=== PATIENT | female | born 1935 | race Caucasian/White ===

== ENCOUNTER 2016-12-21 10:10 | Observation (INO) | payer MEDICARE ==
[2016-12-21 11:42] LABS: URINE BILIRUBIN NEGATIVE (NEGATIVE); URINE BLOOD 3+ (NEGATIVE); URINE GLUCOSE (UA) NEGATIVE (NEGATIVE); URINE LEUKOCYTE ESTERASE TRACE (NEGATIVE); URINE NITRITE NEGATIVE (NEGATIVE); URINE PROTEIN 2+ (NEGATIVE)
[2016-12-21 11:45] LABS: ABSOLUTE NEUTROPHIL COUNT 10.9 K/mm3 (1.8-7.7); BASO % 0.2 % (0.2-1.0); HEMATOCRIT 41.8 % (37.0-47.0); HEMOGLOBIN 13.6 gm/l (12.0-16.0); IMM NEUT # 0.1 K/mm3 (0-0.2); IMM NEUT% 0.4 % (0-1); LYMPH # 0.9 (1.0-4.8); LYMPH % 6.7 % (15-45); MEAN CORPUSCULAR HEMOGLOBIN 27.6 pg (27.0-31.0); MEAN CORPUSCULAR HGB CONC 32.5 g/dl (33.0-37.0); MEAN PLATELET VOLUME 9.5 fl (7.4-10.4); MONO # 0.8 (0.0-0.8); NEUT % 86.7 % (43-75); PLATELET COUNT 182 K/mm3 (130-400); RED CELL DISTRIBUTION WIDTH 13.7 % (11.5-14.5)
[2016-12-21 11:51] LABS: URINE APPEARANCE CLOUDY; URINE COLOR YELLOW; URINE UROBILINOGEN 4 mg/dL (0-1 mg/dl)
[2016-12-21 11:52] LABS: URINE BACTERIA MANY
[2016-12-21 12:00] LABS: ALB/GLOB RATIO 1.6 (>1.0); ALBUMIN 4.5 gm/dL (3.5-5.7); CALCIUM 9.5 mg/dL (8.6-10.3)
[2016-12-21 12:15] LABS: TROPONIN I 0.01 ng/ml (0.0-0.06)
[2016-12-21 12:19] LABS: CKMB ISOENZYME 15.4 ng/ml (0.6-6.3)
[2016-12-21] MEDS ORDERED: METOPROLOL TARTRATE 50 MG TABLET ONE (12:19)
[2016-12-21] MEDS ORDERED: ACETAMINOPHEN 500 MG TABLET ONE (12:27)
--- NOTE | 2016-12-21 13:00 | RAD ---
HISTORY: Right hip pain status post fall. Initial encounter. COMPARISONS: None FINDINGS: AP pelvis with AP and frog-leg lateral views of the right hip are obtained. Bones:No fracture or dislocation. Rim osteophytes are present on the right. Mild spurring of the lateral acetabular roof is present bilaterally. Joints: Moderate superior joint space loss is present bilaterally. Soft tissue: Surgical clips are noted within the pelvis. Other: Nonspecific bowel gas pattern overlays the osseous structures.. IMPRESSION: No fracture or dislocation. Degenerative changes as above.
[2016-12-21] MEDS ORDERED: CEFTRIAXONE 1 GRAM DUPLEX 50 ML IV ONE (13:44)
[2016-12-21 14:30] VITALS: BMI 26.7
[2016-12-21] MEDS ORDERED: PUMP TUBING ONE (14:32)
[2016-12-21] MEDS ORDERED: SODIUM CHLORIDE 0.9% FLUSH 10 ML ONE (14:32)
[2016-12-21] MEDS ORDERED: SODIUM CHLORIDE 0.9% 1,000 ML ONE (14:32)
[2016-12-21] MEDS ORDERED: BLISTEX LIPSTICK 1 EACH TP PRN (14:43)
[2016-12-21] MEDS ORDERED: BISACODYL 10 MG SUP PR PRN (14:43)
[2016-12-21] MEDS ORDERED: MAGNESIUM HYDROXIDE 30 ML UDCUP PO PRN (14:43)
[2016-12-21] MEDS ORDERED: BISACODYL 5 MG TABLET.EC PO PRN (14:43)
[2016-12-21] MEDS ORDERED: MENTHOL/CETYLPYRD 1 EACH LOZENGE PO PRN (14:43)
[2016-12-21] MEDS ORDERED: SODIUM CHLORIDE 0.9% 100 ML IV PRN (14:43)
[2016-12-21] MEDS ORDERED: SODIUM CHLORIDE 0.9% 1,000 ML IV SCH (14:45)
[2016-12-21] MEDS ORDERED: KETOROLAC TROMETHAMINE 15 MG/ML VIAL IV ONE (14:54)
[2016-12-21] MEDS: CALCIUM CARBONATE 500 MG TAB.CHEW PO SCH ×2 (16:30→22:00)
[2016-12-21] MEDS: ASPIRIN (ENTERIC COATED) 81 MG TABLET.EC PO SCH (16:30)
[2016-12-21] MEDS: HYDROCHLOROTHIAZIDE 25 MG TABLET PO SCH (16:30)
[2016-12-21] MEDS: PAROXETINE 20 MG TABLET PO SCH (16:30)
[2016-12-21] MEDS: LISINOPRIL 10 MG TABLET PO SCH (16:31)
--- NOTE | 2016-12-21 16:31 | HP ---
LUIS MIGUEL AMBROCIO [id number] DATE OF : 1935 IDENTIFICATION: This is a 80-year-old female. CHIEF COMPLAINT: Hip pain. HISTORY OF PRESENT ILLNESS: The patient is currently homeless. She was in the post office in [place] last evening to try to stay out of the rain and to maintain some warmth. She was walking, and she turned around to fast, became dizzy and fell. She landed on her buttocks, but she had resultant hip pain. The patient denies hitting her head, or losing consciousness with the fall. She says this happens if she turns to fast due to her macular degeneration. She presumably spent the night there, and then somehow made her way to the emergency department today. Details are lacking from her. In the emergency department, she complained of hip pain. X-ray was negative for any acute hip fracture, but she was found to have pyuria and a slightly elevated white blood count. She is being admitted for observation overnight for assistance with child welfare social worker and treatment of the urinary tract infection. The patient is homeless. It seems to have been for at least the past 6 months. Unknown how this was initiated. She has been staying with friends, and shelters, but has been asked to leave from various locations. Due to her situation, she denies suicidality, but she took a handful of her paroxetine in an attempt to receive assistance for her social situation. She was monitored in the [facility], provided with resources upon her discharge to help with housing and she was discharged on her own recognizance. In discussing the patient's suicide attempt, I asked if she was having any auditory, or visual hallucinations and she did say that she has been seeing people. The hallucinations started with people that she knew that were . One was with a cat on her bed. Others were faces on the ceiling. Then over the progression of the last month or two, she had stayed at [facility] for a few days and while she was at [facility] various individuals were looking in the windows at her. She did not recognize these people, and a couple of them were children. PAST MEDICAL HISTORY: Includes: 1. Hypertension. 2. Macular degeneration. 3. Depression PAST SURGICAL HISTORY: Appendectomy. MEDICATIONS: 1. Aspirin. 2. Calcium. 3. Lisinopril. 4. Multivitamin. 5. Travatan ophthalmic solution. 6. Paroxetine. 7. Hydrochlorothiazide. ALLERGIES: NONE. SOCIAL HISTORY: She is homeless. FAMILY HISTORY: Both parents with myocardial infarction. She had a son who at 54 from myocardial infarction. REVIEW OF SYSTEMS: General: No fevers, or chills. HEENT: No throat pain, or congestion. Eyes: Blindness, macular degeneration. Cardiovascular: No chest pain, or pressure. Respiratory: No difficulty in breathing, shortness of breath, or cough. Abdomen: No nausea, vomiting, or abdominal pain. Genitourinary: No burning with urination, no urgency, no blood. Musculoskeletal: She has bilateral hip pain. Neurologic: She does get headaches, no numbness, or tingling. Psychiatric: Hallucinations. PHYSICAL EXAMINATION: VITAL SIGNS: Temperature is 97.7. Heart rate is 78. Blood pressure is 182/102. Respiratory rate is 18. She is saturating 96% on room air. GENERAL: Well kept, not in acute distress, age appearing, cooperative. HEENT: Normocephalic, atraumatic. No tenderness to palpation. Mucous membranes are moist. Her pupils are equal, round and reactive. Her extraocular muscles are intact. There is no scleral icterus, or conjunctival injection. NECK: Supple, trachea is midline. No appreciable cervical, or submandibular lymphadenopathy. CARDIOVASCULAR: Positive S1, S2. It is regular. She has palpable pulses bilaterally radially and DP. RESPIRATORY: Respiratory is clear to auscultation bilaterally, no rhonchi or wheezing. ABDOMEN: Soft, nontender. No distention or rebound. No guarding. MUSCULOSKELETAL: She is moving extremities without difficulty. She has 5/5 upper and lower extremity strength bilaterally. Bilateral hips are tender to palpation. Her lower extremities from the knee down bilaterally are tender to palpation. She has no costovertebral angle tenderness. NEUROLOGIC: She is alert and oriented. PSYCHIATRIC: Denies suicidal, or homicidal ideations. No auditory hallucinations. She promotes visual hallucinations, but is not in distress over these. LABORATORY DATA: She has a sodium of 140, potassium 3.7, chloride 102, carbon dioxide of 27, BUN 14, creatinine 0.8, glucose 141, and calcium 9.5. CK of 374. CK-MB of 15.4. Troponin of 0.01. White blood count is 12.6, hemoglobin 13.6, hematocrit 41.8, and a platelet count of 182. VBG lactate at 1.1. Urinalysis was obtained. Urine was yellow and cloudy. There is 2+ protein, negative glucose, trace ketones, 3+ blood, negative nitrate, trace leukocyte esterase with 1 to 4 urine red blood cells, 5 to 7 urine white blood cells, 1 to 4 epithelial cells, and many bacteria. DIAGNOSTIC IMAGING: Hip and pelvis x-ray was obtained and interpreted with no fracture, dislocation, degenerative changes, moderate superior joint space loss is present bilaterally. Rim osteophytes are present on the right. Mild spurring of the lateral acetabular roof bilaterally. Electrocardiogram was obtained and it shows atrial fibrillation with a rate of 98 beats per minute. No axis deviation, no acute ST segment elevations or depressions. She has a QRS duration of 86 milliseconds, and a QTC of 418 milliseconds. ASSESSMENT AND PLAN: This is a 80-year-old homeless female with pyuria and bilateral hip pain following a fall. 1. Pyuria. She received a dose of Rocephin in the emergency department. We will wait for culture to continue treatment. 2. Fall. We will have her work with therapy to help her with strategies due to her decreased vision, and macular degeneration. We will continue her ophthalmic solution. 3. Leukocytosis secondary to fall, and possible pyuria versus urinary tract infection. 4. Atrial fibrillation. Unknown if new, or chronic. She is on a baby aspirin. We will monitor for symptoms and keep her weight controlled if needed. 5. Hallucinations. These are apparently new for the patient in the last several months. Social workers are working with her closely. We will obtain a head CT as her infection is not on the level where you would think she had metabolic encephalopathy. We will provide antipsychotic medications if needed. Head CT with evidence of normal pressure hydrocephalus. 6. Elevated CK. 2nd to fall. IV fluids. GENI/corey Cc: Katia Fierro MD
--- NOTE | 2016-12-21 17:02 | CT ---
HEAD W/O CON: 12/21/2016 4:24 PM CLINICAL HISTORY: Hallucinations. COMPARISON: 10/15/2009 TECHNIQUE: Contiguous axial 5 mm images from skull base to the vertex were obtained without IV contrast. Sagittal and coronal reformations with bone algorithm images were also obtained at this time. CT DI:: 51.7 DLP: 938.9 FINDINGS: Infarct: None Extra axial spaces: Normal in size and morphology for the patient's age. Hemorrhage: None. Ventricular system: Increased prominence to the cerebral ventricles is identified. Findings are worrisome for underlying normal pressure hydrocephalus.. Basal cisterns: Normal. Cerebral parenchyma: Atrophy and small vessel occlusive change are again noted.. Midline shift: None. Cerebellum: Normal. Brainstem: Normal. OTHER: Calvarium: Dural based calcification is present along the right temporal region on image 17. Findings could relate to a small meningioma or other calcification. This is stable from prior study. Vascular system: Normal. Visualized Paranasal sinuses and Mastoid air cells: Clear. Visualized Orbits and regional soft tissues: Normal. IMPRESSION: Increased prominence to the ventricular system worrisome for normal pressure hydrocephalus. Correlation with exam and history is recommended. Otherwise small vessel occlusive change and atrophy are again identified without acute intracranial process. Findings were called to Dr. Bell at approximately 1658 hours on 12/21/2016.
[2016-12-21] MEDS: TRAVOPROST 0.004% OU SCH (19:18)
[2016-12-21] MEDS: [UNRECOGNIZED DRUG - OTHER] OU SCH (19:18)
[2016-12-21] MEDS: OLANZAPINE 5 MG TABLET PO SCH ×2 (19:37→20:06)
[2016-12-21] MEDS: DOCUSATE SODIUM 100 MG CAPSULE PO SCH (20:05)
[2016-12-22 06:04] LABS: ABSOLUTE NEUTROPHIL COUNT 6.1 K/mm3 (1.8-7.7); BASO # 0.1 K/mm3 (0.0-0.2); BASO % 0.5 % (0.2-1.0); EOS # 0.1 (0.0-0.5); EOS % 1.2 % (0.9-2.9); HEMATOCRIT 39.7 % (37.0-47.0); HEMOGLOBIN 12.6 gm/l (12.0-16.0); IMM NEUT% 0.3 % (0-1); LYMPH % 22.2 % (15-45); MEAN CELL VOLUME 88.8 fl (81.0-99.0); MEAN CORPUSCULAR HEMOGLOBIN 28.2 pg (27.0-31.0); MEAN CORPUSCULAR HGB CONC 31.7 g/dl (33.0-37.0); MEAN PLATELET VOLUME 9.9 fl (7.4-10.4); MONO # 0.8 (0.0-0.8); NEUT % 66.8 % (43-75); PLATELET COUNT 190 K/mm3 (130-400)
[2016-12-22] MEDS ORDERED: SODIUM CHLORIDE 0.9% 1,000 ML IV SCH ×2 (08:15→09:00)
[2016-12-22] MEDS: POTASSIUM CHLORIDE 20 MEQ TAB.PRT.SR PO SCH ×2 (08:46→21:36)
[2016-12-22] MEDS: CALCIUM CARBONATE 500 MG TAB.CHEW PO SCH ×2 (08:51→21:36)
[2016-12-22] MEDS: PAROXETINE 20 MG TABLET PO SCH (08:51)
[2016-12-22] MEDS: HYDROCHLOROTHIAZIDE 25 MG TABLET PO SCH (08:51)
[2016-12-22] MEDS: LISINOPRIL 10 MG TABLET PO SCH (08:51)
[2016-12-22] MEDS: DOCUSATE SODIUM 100 MG CAPSULE PO SCH ×2 (08:52→22:48)
[2016-12-22] MEDS: ASPIRIN (ENTERIC COATED) 81 MG TABLET.EC PO SCH (08:53)
--- NOTE | 2016-12-22 09:44 | PDOC43 ---
- Subjective Chief Complaint: fall, hip pain Patient awake and alert, eating breakfast. She slept well with the medication overnight. Had hallucination of an elderly lady with crocker hair at the foot of bed or looking in her room last night. Hip pain present with transferring. Ambulating without difficulty and tolerating general diet. Subjective: Reports Pain Tolerable, Reports Tolerating Diet Well, Reports Adequate Oral Intake, Reports Urinating Without Difficulty, Denies Shortness of Breath, Denies Cough, Denies Chest Pain, Denies Abdominal Pain, Denies Nausea ( halluncinations), Denies Vomiting - Objective Vital Signs Temperature 98.0 F 12/22/16 08:37 Pulse Rate 80 12/22/16 08:37 Respiratory Rate 18 12/22/16 08:37 Blood Pressure 132/82 12/22/16 08:37 O2 Saturation by Pulse Oximetry 96 12/21/16 20:12 Oxygen Delivery Method Nasal Cannula Oxygen Flow Rate 3 Intake and Output 12/20/16 12/21/16 12/22/16 23:59 23:59 23:59 Intake Total 449 1000 Output Total 250 Balance 449 750 General: Alert, Oriented x3, Cooperative, No Acute Distress HEENT: Atraumatic, PERRLA, EOMI, Mucous membr. moist/pink Lungs: Clear to Auscultation Bilaterally, Normal Air Movement Cardiovascular: Regular Rate and Rhythm, Normal S1, Normal S2 Abdomen: Soft, Non-Distended, No Rigid, No Tenderness, No Rebounding Extremities: No Cyanosis, No Edema, No Tenderness Neurological: Normal Speech Psych/Mental Status: Normal Mood Laboratory 12/22/16 05:30 12/22/16 05:30 12/22/16 05:30 MCHC 31.7 L Estimated GFR 53 L Creatine Kinase 492 H Current Medications: Current meds reviewed in EMR. - Problems: Assessment/Plan (1) NPH (normal pressure hydrocephalus) Status: Acute Assessment/Plan: New diagnosis, contributing to hallucinations. Walked with therapy and gait instability not unexpected with her macular degeneration. Will need OP F/U CT with prominence of ventricles (2) Bacteriuria with pyuria Status: Acute Assessment/Plan: Pyuria on urinalysis but patient asymptomatic for symptoms. Received dose of rocephin in ED. 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 Continue with drops (4) Hip pain, chronic Qualifiers: Laterality: unspecified laterality Qualifier Code: (M25.559) Pain in unspecified hip Status: Chronic Assessment/Plan: exacerbated by fall. X-ray with B/L degenerative changes. Patient ambulatory without difficulties. Toradol relieved pain. No acute fracture on imaging (5) Hypertension Qualifiers: Hypertension type: essential hypertension Qualifier Code: (I10) Essential (primary) hypertension Status: Chronic Assessment/Plan: stable (6) Depression Qualifiers: Depression Type: major depressive disorder Major depression recurrence : recurrent Active/Remission status: currently active Major depression episode severity: moderate Qualifier Code: (F33.1) Major depressive disorder , recurrent, moderate Status: Chronic Assessment/Plan: on medications (7) Homeless Status: Chronic Assessment/Plan: Complicates discharge planning. She has lost housing opportunities with friends and a fci due to behavioral disturbances and aggressiveness. 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 Care management and social work involved. She does have a services psychosocial rehabilitation counselor as well. Behavior improved last night with zyprexa. VTE Prophylaxis: SCD and ambulatory
[2016-12-22] MEDS ORDERED: IV START KIT ONE (09:47)
[2016-12-22] MEDS: PNEUMOCOCCAL 23-VAL P-SAC VAC 0.5 ML VIAL IM V ONE (10:49)
[2016-12-22] MEDS ORDERED: LORAZEPAM 2 MG/ML 1ML SDV IV PRN (13:46)
[2016-12-22] MEDS ORDERED: LORAZEPAM 2 MG/ML 1ML SDV ONE (13:51)
[2016-12-22] MEDS: ACETAMINOPHEN 325 MG TABLET PO PRN (19:22)
[2016-12-22] MEDS: OLANZAPINE 5 MG TABLET PO SCH (21:36)
[2016-12-22] MEDS: [UNRECOGNIZED DRUG - OTHER] OU SCH (21:38)
[2016-12-22] MEDS: TRAVOPROST 0.004% OU SCH (21:38)
[2016-12-23 06:19] LABS: CALCIUM 8.1 mg/dL (8.6-10.3)
[2016-12-23] MEDS: DOCUSATE SODIUM 100 MG CAPSULE PO SCH ×2 (09:03→20:58)
[2016-12-23] MEDS: LISINOPRIL 10 MG TABLET PO SCH (09:03)
[2016-12-23] MEDS: POTASSIUM CHLORIDE 20 MEQ TAB.PRT.SR PO SCH ×2 (09:03→20:58)
[2016-12-23] MEDS: HYDROCHLOROTHIAZIDE 25 MG TABLET PO SCH (09:03)
[2016-12-23] MEDS: PAROXETINE 20 MG TABLET PO SCH (09:03)
[2016-12-23] MEDS: ASPIRIN (ENTERIC COATED) 81 MG TABLET.EC PO SCH (09:03)
[2016-12-23] MEDS: CALCIUM CARBONATE 500 MG TAB.CHEW PO SCH ×2 (09:03→20:58)
[2016-12-23] MEDS: PNEUMOCOCCAL 23-VAL P-SAC VAC 0.5 ML VIAL IM V ONE (09:04)
[2016-12-23] MEDS: ACETAMINOPHEN 325 MG TABLET PO PRN ×2 (15:52→20:59)
--- NOTE | 2016-12-23 16:20 | PDOC43 ---
- Subjective Chief Complaint: fall, hip pain Patient doing well. No complaints. Subjective: Reports Pain Tolerable, Reports Tolerating Diet Well, Reports Adequate Oral Intake, Reports Urinating Without Difficulty, Denies Shortness of Breath, Denies Cough, Denies Chest Pain, Denies Abdominal Pain, Denies Nausea, Denies Vomiting - Objective Vital Signs Temperature 97.4 F 12/23/16 15:15 Pulse Rate 112 12/23/16 15:15 Respiratory Rate 17 12/23/16 15:15 Blood Pressure 153/75 12/23/16 15:15 O2 Saturation by Pulse Oximetry 97 12/23/16 15:15 Oxygen Delivery Method Room Air Oxygen Flow Rate 0 Intake and Output 12/21/16 12/22/16 12/23/16 23:59 23:59 23:59 Intake Total 449 2000 1100 Output Total 250 700 Balance 449 1750 400 General: Alert, Oriented x3, Cooperative, No Acute Distress HEENT: Atraumatic, Mucous membr. moist/pink Lungs: Clear to Auscultation Bilaterally, Normal Air Movement Cardiovascular: Regular Rate and Rhythm, Normal S1, Normal S2 Abdomen: Soft, Non-Distended, No Rigid, No Tenderness, No Rebounding Extremities: No Cyanosis, No Edema, No Tenderness Neurological: Normal Speech Psych/Mental Status: Normal Mood Laboratory 12/22/16 05:30 12/23/16 05:30 12/23/16 05:30 Calcium 8.1 L Current Medications: Current meds reviewed in EMR. - Problems: Assessment/Plan (1) NPH (normal pressure hydrocephalus) Status: Acute Assessment/Plan: New diagnosis, contributing to hallucinations. Walked with therapy and gait instability not unexpected with her macular degeneration. Will need OP F/U CT with prominence of ventricles (2) Bacteriuria with pyuria Status: Acute Assessment/Plan: Pyuria on urinalysis but patient asymptomatic for symptoms. Received dose of rocephin in ED. 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 Continue with drops (4) Hip pain, chronic Qualifiers: Laterality: unspecified laterality Qualifier Code: (M25.559) Pain in unspecified hip Status: Chronic Assessment/Plan: exacerbated by fall. X-ray with B/L degenerative changes. Patient ambulatory without difficulties. Toradol relieved pain. No acute fracture on imaging (5) Hypertension Qualifiers: Hypertension type: essential hypertension Qualifier Code: (I10) Essential (primary) hypertension Status: Chronic Assessment/Plan: stable (6) Depression Qualifiers: Depression Type: major depressive disorder Major depression recurrence : recurrent Active/Remission status: currently active Major depression episode severity: moderate Qualifier Code: (F33.1) Major depressive disorder , recurrent, moderate Status: Chronic Assessment/Plan: on medications. Difficult to determine if hallucinations related to depression vs. NPH. (7) Homeless Status: Chronic Assessment/Plan: Complicates discharge planning. She has lost housing opportunities with friends and a prison due to behavioral disturbances and aggressiveness. 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 Care management and social work involved. She does have a services community mental health social worker as well. Behavior improved last night with zyprexa. VTE Prophylaxis: SCD and ambulatory
[2016-12-23] MEDS: OLANZAPINE 5 MG TABLET PO SCH (20:59)
[2016-12-23] MEDS: TRAVOPROST 0.004% OU SCH (21:00)
[2016-12-23] MEDS: [UNRECOGNIZED DRUG - OTHER] OU SCH (21:00)
[2016-12-24] MEDS: HYDROCHLOROTHIAZIDE 25 MG TABLET PO SCH (09:07)
[2016-12-24] MEDS: CALCIUM CARBONATE 500 MG TAB.CHEW PO SCH ×2 (09:07→21:08)
[2016-12-24] MEDS: PAROXETINE 20 MG TABLET PO SCH (09:07)
[2016-12-24] MEDS: POTASSIUM CHLORIDE 20 MEQ TAB.PRT.SR PO SCH ×2 (09:08→21:08)
[2016-12-24] MEDS: ASPIRIN (ENTERIC COATED) 81 MG TABLET.EC PO SCH (09:08)
[2016-12-24] MEDS: LISINOPRIL 10 MG TABLET PO SCH (09:08)
[2016-12-24] MEDS: DOCUSATE SODIUM 100 MG CAPSULE PO SCH ×2 (09:08→21:08)
--- NOTE | 2016-12-24 10:03 | PDOC43 ---
- Subjective Chief Complaint: fall, hip pain Patient doing well, walking around the halls, tolerating diet. Denies pain. No hallucinations last night Subjective: Reports Pain Tolerable, Reports Tolerating Diet Well, Reports Adequate Oral Intake, Reports Bowel Movement, Reports Urinating Without Difficulty, Denies Shortness of Breath, Denies Cough, Denies Chest Pain, Denies Abdominal Pain, Denies Nausea, Denies Vomiting, Denies Fever - Objective Vital Signs Temperature 98.6 F 12/24/16 07:36 Pulse Rate 81 12/24/16 07:36 Respiratory Rate 18 12/24/16 08:00 Blood Pressure 168/99 12/24/16 07:36 O2 Saturation by Pulse Oximetry 95 12/24/16 07:36 Oxygen Delivery Method Room Air Oxygen Flow Rate 0 Intake and Output 12/22/16 12/23/16 12/24/16 23:59 23:59 23:59 Intake Total 1999 1570 550 Output Total 250 700 Balance 1750 870 550 General: Alert, Oriented x3, Cooperative, No Acute Distress HEENT: Atraumatic, Mucous membr. moist/pink Lungs: Clear to Auscultation Bilaterally, Normal Air Movement Cardiovascular: Regular Rate and Rhythm, Normal S1, Normal S2 Abdomen: Soft, Non-Distended, No Rigid, No Tenderness, No Rebounding Extremities: No Cyanosis, No Edema, No Tenderness Neurological: Normal Speech Psych/Mental Status: Normal Mood Laboratory 12/22/16 05:30 12/23/16 05:30 Current Medications: Current meds reviewed in EMR. - Problems: Assessment/Plan (1) NPH (normal pressure hydrocephalus) Status: Acute Assessment/Plan: New diagnosis, contributing to hallucinations. Walked with therapy and gait instability not unexpected with her macular degeneration. Will need OP F/U CT with prominence of ventricles No hallucinations overnight (2) Bacteriuria with pyuria Status: Acute Assessment/Plan: Pyuria on urinalysis but patient asymptomatic for symptoms. Received dose of rocephin in ED. 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 Continue with drops (4) Hip pain, chronic Qualifiers: Laterality: unspecified laterality Qualifier Code: (M25.559) Pain in unspecified hip Status: Chronic Assessment/Plan: exacerbated by fall. X-ray with B/L degenerative changes. Patient ambulatory without difficulties. Toradol relieved pain. No acute fracture on imaging (5) Hypertension Qualifiers: Hypertension type: essential hypertension Qualifier Code: (I10) Essential (primary) hypertension Status: Chronic Assessment/Plan: stable (6) Depression Qualifiers: Depression Type: major depressive disorder Major depression recurrence : recurrent Active/Remission status: currently active Major depression episode severity: moderate Qualifier Code: (F33.1) Major depressive disorder , recurrent, moderate Status: Chronic Assessment/Plan: on medications. Difficult to determine if hallucinations related to depression vs. NPH. No acute psychosis as patient aware of hallucinations (7) Homeless Status: Chronic Assessment/Plan: Complicates discharge planning. She has lost housing opportunities with friends and a snf due to behavioral disturbances and aggressiveness. 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 Care management and social work involved. She does have a services older adult social work specialist as well. Behavior improved last night with zyprexa. VTE Prophylaxis: SCD and ambulatory
[2016-12-24] MEDS: ACETAMINOPHEN 325 MG TABLET PO PRN (19:32)
[2016-12-24] MEDS: [UNRECOGNIZED DRUG - OTHER] OU SCH (21:08)
[2016-12-24] MEDS: TRAVOPROST 0.004% OU SCH (21:08)
[2016-12-24] MEDS: OLANZAPINE 5 MG TABLET PO SCH (21:08)
[2016-12-25] MEDS: PAROXETINE 20 MG TABLET PO SCH (08:58)
[2016-12-25] MEDS: POTASSIUM CHLORIDE 20 MEQ TAB.PRT.SR PO SCH ×2 (08:58→21:01)
[2016-12-25] MEDS: ASPIRIN (ENTERIC COATED) 81 MG TABLET.EC PO SCH (08:58)
[2016-12-25] MEDS: DOCUSATE SODIUM 100 MG CAPSULE PO SCH ×2 (08:59→21:01)
[2016-12-25] MEDS: CALCIUM CARBONATE 500 MG TAB.CHEW PO SCH ×2 (08:59→21:01)
[2016-12-25] MEDS: HYDROCHLOROTHIAZIDE 25 MG TABLET PO SCH (08:59)
[2016-12-25] MEDS: LISINOPRIL 10 MG TABLET PO SCH (08:59)
--- NOTE | 2016-12-25 15:04 | PDOC43 ---
- Subjective Chief Complaint: fall, hip pain Patient resting, now dressed. Anticipating leaving now. No new c/o. Not having hallucinations like previous, but noted the edge of the window was "wavy." Previously had seen people, pets, but would realize they were not real. - Objective Vital Signs Temperature 98.3 F 12/25/16 01:10 Pulse Rate 90 12/25/16 01:10 Respiratory Rate 18 12/25/16 08:00 Blood Pressure 153/89 12/25/16 01:10 O2 Saturation by Pulse Oximetry 96 12/25/16 01:10 Oxygen Delivery Method Room Air Oxygen Flow Rate 0 Vital Signs Last 12 Hours Resp 12/25/16 08:00 18 Intake and Output 12/23/16 12/24/16 12/25/16 23:59 23:59 23:59 Intake Total 1570 1150 568 Output Total 700 300 Balance 870 1150 268 Intake & Output 12/22/16 12/23/16 12/24/16 12/25/16 23:59 23:59 23:59 23:59 Intake Total 2000 1570 1150 568 Output Total 250 700 300 Balance 4579 636 6262 268 General: Alert, Cooperative, No Acute Distress HEENT: Atraumatic Lungs: Clear to Auscultation Bilaterally, Normal Air Movement Cardiovascular: Regular Rate and Rhythm Abdomen: Soft, Non-Distended Extremities: Edema Psych/Mental Status: Normal Affect (Sl snippy when interrupted, but responds appropriately afterward. Eye contact good, speech clear. Mild pressure of speech , not anderson tangential/not anderson agitated.) Laboratory 12/22/16 05:30 12/23/16 05:30 Current Medications: Current meds reviewed in EMR. Active Medications Acetaminophen (Tylenol) 650 mg PO Q6H PRN PRN Reason: Pain or Temperature > 100.5 F Last Admin: 12/24/16 19:32 Dose: 650 mg Aspirin (Ecotrin) 81 mg PO DAILY [facility] Last Admin: 12/25/16 08:58 Dose: 81 mg Benzocaine/Menthol (Cepacol) 1 each PO PRN PRN PRN Reason: Sore Throat Bisacodyl (Dulcolax) 10 mg [place] DAILY PRN PRN Reason: Constipation Bisacodyl (Dulcolax) 5 mg PO DAILY PRN PRN Reason: Constipation Calcium Carbonate/Glycine (Tums) 500 mg PO BID [facility] Last Admin: 12/25/16 08:59 Dose: 500 mg Docusate Sodium (Colace) 100 mg PO BID [facility] Last Admin: 12/25/16 08:59 Dose: 100 mg Hydrochlorothiazide (Hydrochlorothiazide) 25 mg PO DAILY [facility] Last Admin: 12/25/16 08:59 Dose: 25 mg Sodium Chloride (Sodium Chloride 0.9%) 100 mls @ 25 mls/hr IV PRN PRN PRN Reason: Flush Lisinopril (Prinivil) 10 mg PO DAILY [facility] Last Admin: 12/25/16 08:59 Dose: 10 mg Magnesium Hydroxide (Milk Of Magnesia) 30 ml PO DAILY PRN PRN Reason: Constipation Olanzapine (Zyprexa) 5 mg PO BEDTIME [facility] Last Admin: 12/24/16 21:08 Dose: 5 mg Paroxetine HCl (Paxil) 20 mg PO DAILY [facility] Last Admin: 12/25/16 08:58 Dose: 20 mg Petrolatum/Paraffin/Mineral Oil (Blistex) 1 each TP PRN PRN PRN Reason: Dry and/or chapped lips Potassium Chloride (K-Dur) 20 meq PO BID [facility] Last Admin: 12/25/16 08:58 Dose: 20 meq Sodium Chloride (Normal Saline 10ml Flush) 10 - 50 ml IV PRN PRN PRN Reason: IV Flush Last Admin: 12/21/16 19:18 Dose: 10 ml Sodium Chloride (Normal Saline 10ml Flush) 10 ml IV Q8HR [facility] Last Admin: 12/25/16 01:13 Dose: 10 ml Travoprost (Travatan Z) 1 gtts OU QPM [facility] Last Admin: 12/24/16 21:08 Dose: 1 gtts - Problems: Assessment/Plan (1) NPH (normal pressure hydrocephalus) Status: AcuteAssessment/Plan: Suggested on CT, but MRI not especially suggestive, and not having other sx to suggest dx. Suspect hydrocephalus ex vacuo from dementia/age rather than NPH Walked with therapy and gait instability not unexpected with her macular degeneration. Will need OP F/U No overt hallucinations reported overnight (2) Homeless Status: ChronicAssessment/Plan: Complicates discharge planning. She has lost housing opportunities with friends and a long-term due to behavioral disturbances and aggressiveness. Resources quite limited despite extensive efforts by SW, Care management. She does have a services social insurance administrator as well. Behavior improved last night with zyprexa. Anticipate going to long-term in [place] (3) Macular degeneration (senile) of retina Status: ChronicAssessment/Plan: complicates medical care as almost blind in left eye. (4) Depression Qualifiers: Depression Type: major depressive disorder Major depression recurrence : recurrent Active/Remission status: currently active Major depression episode severity: moderate Qualifier Code: (F33.1) Major depressive disorder , recurrent, moderate Status: ChronicAssessment/Plan: on medications. Difficult to determine if hallucinations related to depression vs. other dementia (Lewy body, etc.) No acute psychosis as patient aware of hallucinations, but continue on zyprexa (5) Hip pain, chronic Qualifiers: Laterality: unspecified laterality Qualifier Code: (M25.559) Pain in unspecified hip Status: ChronicAssessment/Plan: exacerbated by fall. X-ray with B/L degenerative changes. Patient ambulatory without difficulties. No acute fracture on imaging (6) Hypertension Qualifiers: Hypertension type: essential hypertension Qualifier Code: (I10) Essential (primary) hypertension Status: ChronicAssessment/Plan: stable (7) Bacteriuria with pyuria Status: AcuteAssessment/Plan: Pyuria on urinalysis but patient asymptomatic for symptoms. Received dose of rocephin in ED. Will monitor and treat per culture results (negative) Culture is negative, urine contaminated VTE Prophylaxis: SCD and ambulatory Disposition: Much appreciation to ALON, MILAD for their efforts. Local shelters in [place] indicated that they would not accept her back. Behaviors seem better now, so hope that she will have more success. ALON working on bed bug exterminator plan as well, but still in progress.
--- NOTE | 2016-12-25 16:22 | DS ---
LUIS MIGUEL AMRBOCIO [id number] DATE OF ADMISSION: December 21, 2016 DATE OF DISCHARGE: December 26, 2016 DISCHARGE DIAGNOSES: Are: 1. Dementia with hallucinosis. 2. Hypertension. 3. Macular degeneration. 4. Depression. 5. Pyuria with a negative urine culture. 6. History of fall. 7. Atrial fibrillation. 8. Elevated CK attributed to fall. REASON FOR ADMISSION: The patient is a 80-year-old female who is currently homeless as [place] stay out of the [place] and maintain warmth and was walking, became dizzy and fell. She landed on her buttocks and complained of hip pain. She was brought to the emergency room. X-ray was negative for hip fracture, but she was noted to have a slightly elevated white blood cell count and pyuria. She was given ceftriaxone in the emergency department and referred to the hospitalist service for assistance with social secretary and treatment of urinary tract infection. On further discussion, the patient has been homeless staying at various friends and shelters over the last six months but has been asked to leave from various locations. In discussion, she was having some visual hallucinations and had seen people who were not scary but other things such as her friend's dogs as well. She was noted in the emergency department to have hip x-ray with no fracture or dislocation but degenerative changes. She also underwent a brain CT listing increased prominence to the ventricular system worrisome for normal pressure hydrocephalus. Correlation with exam and history recommended, otherwise small vessel occlusive change and atrophy identified without acute intracranial process. Patient's lab showed a white count of 12.6, hemoglobin 13.6, platelets 182, lactate 1.1. Chemistry profile with a sodium 140, potassium 3.7, bicarbonate 27, BUN 14, creatinine 0.8, glucose 141, liver enzymes normal. Troponin 0.01, CK-MB 15.4, CK 374. TSH 1.8. Urinalysis initially with 1 to 4 red cells, 5 to 7 white cells, 1 to 4 epithelial cells, many urine bacteria and 2+ protein but urine culture ultimately was suggestive of contamination. Patient underwent observation and care from physical therapy and occupational therapy. Her followup CBC was unremarkable. Her white count declined to 9.2. Chemistry profile remained relatively unchanged. CK improved. Urine culture showed contaminant so antibiotics were discontinued. Patient underwent an MRI of the brain although it is not available at this time which was not remarkable. Social work and care managers worked extensively to make a discharge plan for her. She had been in a number of shelters previously but had been asked to leave and patient received Zyprexa to help hallucinations, improve sleep and this also seemed to improve her disposition. By December 25, 2016, she was felt to be stable for discharge. She was to go to [facility], but ultimately, they were unable to accept her due to not being able to climb to a top bunk. Discharge was cancelled, and on 12/26/16, an alternate plan made to go to [facility] for evaluation. DISCHARGE MEDICATIONS: Will be: 1. Aspirin 81 mg daily. 2. Calcium carbonate 600 mg orally twice daily. 3. Hydrochlorothiazide 25 mg orally daily. 4. Zyprexa 5 mg at bedtime which she was tolerating well. 5. Paxil 20 mg orally daily. 6. Travatan Z drops in both eyes in the evening. 7. Her lisinopril was discontinued due to concern for central nervous system effects. DISPOSITION: She will be going to [facility] today. Care managers had extensive talks with [facility] as well as [facility], and a more suitable place was not able to be found. FOLLOWUP: She has a followup appointment with Dr. Katia Fierro on January 02, 2017 at 3:[address] comment about normal pressure hydrocephalus was felt to be less likely at this time as she did not have the broad based gait or incontinence that would go with this, however, this could still be considered if patient has continued difficulties. She will need to follow up on her blood pressure as well. ACTIVITY: As tolerated. DIET: As tolerated. Cc: Katia Fierro M.D.
[2016-12-25] MEDS: ACETAMINOPHEN 325 MG TABLET PO PRN (19:20)
[2016-12-25] MEDS ORDERED: AMLODIPINE BESYLATE 5 MG TABLET ONE (20:54)
[2016-12-25] MEDS: OLANZAPINE 5 MG TABLET PO SCH (21:01)
[2016-12-25] MEDS ORDERED: AMLODIPINE BESYLATE 5 MG TABLET PO ONE (21:03)
[2016-12-25] MEDS: TRAVOPROST 0.004% OU SCH (21:09)
[2016-12-25] MEDS: [UNRECOGNIZED DRUG - OTHER] OU SCH (21:09)
--- NOTE | 2016-12-25 23:29 | PDOC36 ---
Provider Note Subject: Patient return Note: Patient was initially planned to be [facility] [place], but they were unable to accept her on hearing that she would not be able to climb to a top bunk. Pt has several disabilities, including age (is 81 tomorrow) and impaired vision. Patient returned to med/surg, and will continue with attempt to find placement for her. At this time she is sleeping, but arouses easily and reports feeling ok , no complaints. 23:29
[2016-12-26] MEDS: DOCUSATE SODIUM 100 MG CAPSULE PO SCH (08:39)
[2016-12-26] MEDS: PAROXETINE 20 MG TABLET PO SCH (08:39)
[2016-12-26] MEDS: LISINOPRIL 10 MG TABLET PO SCH (08:39)
[2016-12-26] MEDS: POTASSIUM CHLORIDE 20 MEQ TAB.PRT.SR PO SCH (08:39)
[2016-12-26] MEDS: ASPIRIN (ENTERIC COATED) 81 MG TABLET.EC PO SCH (08:40)
[2016-12-26] MEDS: ACETAMINOPHEN 325 MG TABLET PO PRN (08:40)
[2016-12-26] MEDS: CALCIUM CARBONATE 500 MG TAB.CHEW PO SCH (08:40)
[2016-12-26] MEDS: HYDROCHLOROTHIAZIDE 25 MG TABLET PO SCH (08:43)
--- NOTE | 2016-12-26 12:56 | PDOC43 ---
- Subjective Chief Complaint: fall, hip pain, hallucination Patient reported to have a place to go to at the [employer], hopefully. Pt up and walking this am, now having breakfast. Notes some pain on L leg, better with APAP. No new c/o. - Objective Vital Signs Temperature 97.9 F 12/26/16 08:00 Pulse Rate 95 12/26/16 08:00 Respiratory Rate 16 12/26/16 08:00 Blood Pressure 145/101 12/26/16 08:00 O2 Saturation by Pulse Oximetry 97 12/26/16 08:00 Oxygen Delivery Method Room Air Oxygen Flow Rate 0 Vital Signs Last 12 Hours Temp Pulse Resp BP Pulse Ox 12/26/16 08:00 97.9 F 95 16 145/101 97 12/26/16 07:28 16 12/26/16 02:00 97.5 F 77 16 153/98 96 Intake and Output 12/24/16 12/25/16 12/26/16 23:59 23:59 23:59 Intake Total 1150 568 400 Output Total 300 400 Balance 1150 268 0 General: Alert Lungs: Clear to Auscultation Bilaterally, Normal Air Movement, Other (yellow bruising on L posterior/scapula, mild) Cardiovascular: Other (mostly regular) Abdomen: Soft Extremities: Other (sensitive, not anderson tender.) Neurological: Normal Speech Psych/Mental Status: Normal Affect (calm, at ease. Appears to be doing better.) Laboratory 12/22/16 05:30 12/23/16 05:30 Current Medications: Current meds reviewed in EMR. - Problems: Assessment/Plan (1) NPH (normal pressure hydrocephalus) Status: AcuteAssessment/Plan: Suggested on CT, but MRI not especially suggestive, and not having other sx to suggest dx. Suspect hydrocephalus ex vacuo from dementia/age rather than NPH Walked with therapy and gait instability (better today) Will need OP F/U No overt hallucinations reported overnight, seems to be tolerating med well. (2) Homeless Status: ChronicAssessment/Plan: Complicates discharge planning. She has lost housing opportunities with friends and a senior living due to behavioral disturbances and aggressiveness. Resources quite limited despite extensive efforts by SW, Care management. She does have a services licensed social worker as well. Behavior good with zyprexa. [facility] didn't accept pt because she couldn't climb to top bunk. Hope to try to send to [facility] today. 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 (4) Depression Qualifiers: Depression Type: major depressive disorder Major depression recurrence : recurrent Active/Remission status: currently active Major depression episode severity: moderate Qualifier Code: (F33.1) Major depressive disorder , recurrent, moderate Status: ChronicAssessment/Plan: on medications. Difficult to determine if hallucinations related to depression vs. other dementia (Lewy body, etc.) No acute psychosis as patient aware of hallucinations, now better; continue on zyprexa (5) Hip pain, chronic Qualifiers: Laterality: unspecified laterality Qualifier Code: (M25.559) Pain in unspecified hip Status: ChronicAssessment/Plan: exacerbated by fall. X-ray with B/L degenerative changes. Patient ambulatory without difficulties. No acute fracture on imaging (6) Hypertension Qualifiers: Hypertension type: essential hypertension Qualifier Code: (I10) Essential (primary) hypertension Status: ChronicAssessment/Plan: stable. Sl elevated, but would anticipate follow up outpt (7) Bacteriuria with pyuria Status: AcuteAssessment/Plan: Pyuria on urinalysis but patient asymptomatic for symptoms. Received dose of rocephin in ED. Will monitor and treat per culture results (negative) Culture is negative, urine contaminated VTE Prophylaxis: SCD and ambulatory Disposition: Much appreciation to ALON, MILAD for their efforts. Local shelters in [place] indicated that they would not accept her back. Behaviors seem better now, so hope that she will have more success. SW working on exterminator helper plan as well, but still in progress.
[2016-12-26 14:00] VITALS: BP 174/99
== END 2016-12-26 13:49 | disposition other institution (70) ==
LOC: ED 10:10 → MS 13:19 → INTOOBSV 13:19 → MS 12-25 18:33
PROVIDERS: ADMIT Family Medicine; ATTEND Family Medicine
DX: N39.0 Urinary tract infection, site not specified (principal); M25.552 Pain in left hip; H35.30 Unspecified macular degeneration; D72.829 Elevated white blood cell count, unspecified; I48.91 Unspecified atrial fibrillation; Q87.0 Congenital malformation syndromes predominantly affecting facial appearance; F03.90 Unspecified dementia, unspecified severity, without behavioral disturbance, psychotic disturbance, mood disturbance, and anxiety; I10 Essential (primary) hypertension; G91.9 Hydrocephalus, unspecified; Z59.0 Homelessness; W19.XXXA Unspecified fall, initial encounter; Y93.01 Activity, walking, marching and hiking; Y92.242 Post office as the place of occurrence of the external cause; Z23 Encounter for immunization; G93.89 Other specified disorders of brain; R44.3 Hallucinations, unspecified
CPT/HCPCS: 90732; 83605; 85025 ×2; 82550 ×3; 82553; 87086; 80048 ×2; 80053; 84443; 84484; 81001; 36415; 73502; 70450; 97165; 99285 ×2; 96365; 70551; 93005 ×2; 96375; A9270 ×63; J2060; J1885; J7030 ×3; J0696; G0378 ×2; G0009